=== PATIENT | male | born 1985 | race Caucasian/White ===

== ENCOUNTER 2019-02-08 13:05 | Emergency (ER) | payer BC ==
[2019-02-08 14:27] VITALS: BP 140/79
--- NOTE | 2019-02-08 15:08 | UC ---
General HPI - HPI Summary HPI Summary: day 5 of worsening rash. began as red bumps on L arm. Now has same on trunk and R arm. + mild itch. no medications prior to onset. no recent/current illness. no sick contacts. no out of doors exposures(weeds). had worked outside but was covered. he has self tx with calamine, aloe, bendaryl and hydrocortisone(all topical) without relief. no rash below waist. - History of Current Complaint Chief Complaint: UCRas Stated Complaint: RASH ON ARMS AND BELLY Time Seen by Provider: 02/08/19 15:01 Hx Obtained From: Patient Onset/Duration: Gradual Onset Timing: Constant Pain Intensity: 0 - Allergy/Home Medications Allergies/Adverse Reactions: Allergies Allergy/AdvReac Type Severity Reaction Status Date / Time No Known Allergies Allergy Verified 02/08/19 14:27 PMH/Surg Hx/FS Hx/Imm Hx Previously Healthy: Yes - Surgical History Surgical History: None - Family History Known Family History: Positive: Other - no family hx of appendicitis - Social History Occupation: Employed Full-time Alcohol Use: Occasionally Substance Use Type: None Smoking Status (MU): Light Every Day Tobacco Smoker Review of Systems All Other Systems Reviewed And Are Negative: No Constitutional: Negative: Fever, Chills Skin: Positive: Rash Eyes: Negative: Drainage, Eye Redness ENT: Negative: Sore Throat, Ear Ache, Sinus Congestion Respiratory: Negative: Shortness Of Breath, Cough Gastrointestinal: Negative: Vomiting, Diarrhea Genitourinary: Negative: Dysuria Musculoskeletal: Negative: Arthralgia Neurological: Negative: Headache Physical Exam Triage Information Reviewed: Yes Appearance: Well-Appearing Vital Signs: Initial Vital Signs Temp 99.2 F 02/08/19 14:20 Pulse 90 02/08/19 14:20 Resp 16 02/08/19 14:20 BP 140/79 02/08/19 14:20 Pulse Ox 98 02/08/19 14:20 Vital Signs Reviewed: Yes Eyes: Positive: Conjunctiva Clear ENT: Positive: Pharynx normal, TMs normal. Negative: Nasal congestion, Nasal drainage Neck: Positive: Supple, Nontender, No Lymphadenopathy Respiratory: Positive: Lungs clear, Normal breath sounds, No respiratory distress Cardiovascular: Positive: RRR, No Murmur Abdomen Description: Positive: Nontender Musculoskeletal: Positive: ROM Intact Neurological: Positive: Alert Psychological: Positive: Normal Response To Family, Age Appropriate Behavior Skin: Positive: Rashes - pink to red papular rash with rough textured to BUE's and trunk. Rash does alexis. No blistering, peeling or burrows. above neck, palms, soles of feet and below waist spared. Diagnostics - Laboratory Lab Results: RAPID STREP=NEG. Course/Dx - Differential Dx - Multi-Symptom Differential Diagnoses: Other - non toxic. not febrile. no concern for fungal infection. no concern for infestation. no concern for bacterial rash. nothing to support viral rash. nothing to support phototoxic reaction. no hx to support contact dermatitis and does not look typical of that. rapid strep is negative. will stop prior tx's since not helping. will tx with po steroid. - Diagnoses Provider Diagnosis: Rash Discharge ED - Sign-Out/Discharge Documenting (check all that apply): Patient Departure All imaging exams completed and their final reports reviewed: No Studies - Discharge Plan Condition: Stable Disposition: HOME Prescriptions: predniSONE [Prednisone 20 MG TAB] 20 mg PO DAILY 9 Days #18 tablet Patient Education Materials: Acute Rash (ED) Referrals: Trav Sinha MD [Primary Care Provider] - 7 Days Additional Instructions: FOLLOW UP SOONER IF WORSE. - Billing Disposition and Condition Condition: STABLE Disposition: Home - Attestation Statements Provider Attestation: Per institutional requirements, I have reviewed the gualberto, I did not personally evaluate, interact with , or disposition this patient.
== END 2019-02-08 15:48 | disposition home or self-care (01) ==
LOC: UCCORT 13:05
DX: R21 Rash and other nonspecific skin eruption (principal); F17.200 Nicotine dependence, unspecified, uncomplicated
CPT/HCPCS: 87651; 99202; G0463